=== PATIENT | female | born 1995 | race Caucasian/White ===

== ENCOUNTER 2020-12-25 16:11 | Emergency (ER) | payer OTHER ==
[2020-12-25 16:22] VITALS: BP 107/60; PULSE 79; TEMP 98.2; BMI 21.4
[2020-12-25] MEDS ORDERED: KETOROLAC TROMETHAMINE 30 MG/1 ML VIAL IM ONE (17:17)
[2020-12-25] MEDS ORDERED: KETOROLAC TROMETHAMINE 30 MG/1 ML VIAL ONE (17:43)
== END 2020-12-25 18:00 | disposition home or self-care (01) ==
LOC: JERFT 16:11
PROC: 3E0233Z Introduction of Anti-inflammatory into Muscle, Percutaneous Approach (ICD-10-PCS; principal; 2020-12-25)
DX: M54.2 Cervicalgia (principal)
CPT/HCPCS: 99284-25